=== PATIENT | male | born 1960 | race Caucasian/White ===

== ENCOUNTER 2017-03-24 12:16 | Day surgery (SDC) | payer OTHER ==
[2017-03-19 09:33] VITALS: BP 147/90
[~2017-03-24] VITALS: Ht 182.9 cm; Wt 84.1 kg
[~2017-03-24 12:16] MED LIST: LEVO125T5 PO; LISI-167 PO; OMEP-110 PO; ROSU5TAB PO; TEST60GE TP
[2017-03-24 12:41] VITALS: BP 147/90
[2017-03-24] MEDS ORDERED: LACTATED RINGERS 1,000 ML IV SCH ×2 (12:48→15:32)
[2017-03-24] MEDS ORDERED: EPINEPHRINE 1 MG/ML, 1ML ONE (13:17)
[2017-03-24] MEDS ORDERED: BUPIVACAINE/PF 0.5% ONE (13:17)
[2017-03-24] MEDS ORDERED: FENTANYL PF 100 MCG/2ML ONE ×4 (13:27→15:03)
[2017-03-24] MEDS ORDERED: MIDAZOLAM 1 MG/ML, 2ML ONE ×2 (13:27→15:47)
[2017-03-24] MEDS ORDERED: LABETALOL 5MG/ML 40ML VIAL ONE (14:07)
[2017-03-24] MEDS ORDERED: HYDROmorphone 2 MG/ML, 1ML ONE (14:39)
[2017-03-24] MEDS ORDERED: PROPOFOL 10 MG/ML, 20ML ONE (14:40)
[2017-03-24] MEDS ORDERED: NEOSTIGMINE 1 MG/ML, 10ML ONE (14:40)
[2017-03-24] MEDS ORDERED: SUCCINYLCHOLINE 20 MG/ML, 10ML ONE (14:40)
[2017-03-24] MEDS ORDERED: GLYCOPYRROLATE 0.2MG/1ML, 5ML ONE (14:40)
[2017-03-24] MEDS ORDERED: ROCURONIUM 10 MG/ML,10ML ONE (14:40)
[2017-03-24] MEDS ORDERED: CEFAZOLIN 1,000 MG ONE (14:40)
[2017-03-24] MEDS ORDERED: ONDANSETRON 2MG/ML, 2ML ONE (14:40)
[2017-03-24] MEDS ORDERED: DEXAMETHASONE 4 MG/ML, 1ML ONE (14:40)
[2017-03-24] MEDS ORDERED: HYDROmorphone 1 MG/ML, 1ML IV PRN (15:30)
[2017-03-24] MEDS ORDERED: DIAZEPAM 5 MG/ML, 2ML IVPush PRN (15:30)
[2017-03-24] MEDS ORDERED: ONDANSETRON 2MG/ML, 2ML IVPush PRN ×2 (15:30→16:00)
[2017-03-24] MEDS ORDERED: MIDAZOLAM 1 MG/ML, 2ML IV PRN (15:30)
[2017-03-24] MEDS ORDERED: ACETAMINOPHEN 325 MG TABLET PO PRN (15:30)
[2017-03-24] MEDS ORDERED: ALBUTEROL SULFATE 2.5 MG/3 ML NPPB PRN (15:30)
[2017-03-24] MEDS ORDERED: EPHEDRINE 50 MG/ML, 1ML IVPush PRN (15:30)
[2017-03-24] MEDS ORDERED: FENTANYL PF 100 MCG/2ML IV PRN (15:30)
[2017-03-24] MEDS ORDERED: MEPERIDINE/PF 25MG/0.5ML IVPush PRN (15:30)
[2017-03-24] MEDS ORDERED: HYDROcodone/APAP 7.5-325MG/15ML UDC PO PRN ×2 (15:30→16:00)
[2017-03-24] MEDS ORDERED: hydrALAzine 20 MG/ML, 1ML IV PRN (15:30)
[2017-03-24] MEDS ORDERED: OXYcodone 5 MG/5 ML ORAL.SOL UDC PO PRN (15:30)
[2017-03-24] MEDS ORDERED: METOPROLOL 1 MG/ML, 5ML IV PRN (15:30)
[2017-03-24] MEDS ORDERED: PROMETHAZINE 25 MG/ML, 1ML IV PRN (15:30)
[2017-03-24] MEDS: LABETALOL 5MG/ML, 20ML IV PRN ×3 (15:34→16:01)
[2017-03-24] MEDS ORDERED: HYDROcodone/APAP 7.5-325MG/15ML UDC ONE (15:37)
[2017-03-24] MEDS ORDERED: MEPERIDINE/PF 25MG/0.5ML ONE (15:40)
[2017-03-24] MEDS ORDERED: KETOROLAC 30 MG/1 ML ONE (15:47)
[2017-03-24] MEDS ORDERED: hydrALAzine 20 MG/ML, 1ML ONE (15:53)
[2017-03-24] MEDS ORDERED: KETOROLAC 30 MG/1 ML IVPush PRN (16:00)
[2017-03-24] MEDS ORDERED: morphine SULFATE 10 MG/ML, 1ML IVPush PRN (16:00)
[2017-03-24] MEDS ORDERED: HYDR473S51 PO (17:11)
== END 2017-03-24 18:31 | disposition home or self-care (01) ==
LOC: OUT 12:16
PROVIDERS: ATTEND Thoracic Surgery (Cardiothoracic Vascular Surgery)
DX: K44.9 Diaphragmatic hernia without obstruction or gangrene (principal); I10 Essential (primary) hypertension
CPT/HCPCS: 43280; J0171; J0330; J0690; J1100; J1170; J1885; J2175; J2250; J2405; J2704; J2710; J3010; J3490; J7120

== ENCOUNTER → 2019-09-13 | Outpatient (CLI) | payer OTHER ==
[~2019-09-13] MED LIST changes: +HYDR473S51 PO; +SINCALIDE (KINEVAC) 5 MCG ONE
== END | disposition home or self-care (01) ==
LOC: RAD 10:15
PROVIDERS: ATTEND Family Medicine
DX: R94.5 Abnormal results of liver function studies (principal)
CPT/HCPCS: 78227; A9537; J2805